=== PATIENT | female | born 1990 | race Caucasian/White ===

== ENCOUNTER 2024-09-06 01:48 | Emergency (ER) | payer SELFPAY ==
[~2024-09-06] VITALS: Ht 167.6 cm; Wt 61.4 kg
[2024-09-06 01:53] VITALS: BP 148/82; PULSE 116; RESP 16; TEMP 98.4; O2SAT 98
== END 2024-09-06 02:37 ==
LOC: ER 01:49
DX: S00.81XA Abrasion of other part of head, initial encounter (principal); X58.XXXA Exposure to other specified factors, initial encounter; Y93.89 Activity, other specified; Y92.89 Other specified places as the place of occurrence of the external cause; Y99.8 Other external cause status
CPT/HCPCS: 99283